=== PATIENT | male | born 1995 | race Caucasian/White ===

== ENCOUNTER 2016-12-26 17:08 | Emergency (ER) | payer BC ==
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
== END 2016-12-26 19:03 | disposition home or self-care (01) ==
LOC: ER 17:08
DX: S52.501A Unspecified fracture of the lower end of right radius, initial encounter for closed fracture (principal); W22.8XXA Striking against or struck by other objects, initial encounter
CPT/HCPCS: 99283